=== PATIENT | male | born 1965 | race Caucasian/White ===

== ENCOUNTER 2021-12-10 12:07 | Emergency (ER) | payer OTHER ==
[2021-12-10 13:35] LABS: HEMOGLOBIN 15.7 gm/dl (14.0-17.5); RED BLOOD COUNT 4.73 M/UL (4.20-5.50); WHITE BLOOD COUNT 7.4 K/UL (4.5-11.0)
[2021-12-10 13:53] LABS: BUN/CREATININE RATIO 16 (0-10)
[2021-12-10] MEDS ORDERED: LISINOPRIL10 MG PO (14:48)
[2021-12-10] MEDS ORDERED: METFORMIN HCL500 MG PO (14:48)
== END 2021-12-10 15:05 | disposition home or self-care (01) ==
LOC: ER1 12:07
PROVIDERS: Physician Assistant
DX: I10 Essential (primary) hypertension (principal); E10.9 Type 1 diabetes mellitus without complications; E78.5 Hyperlipidemia, unspecified
CPT/HCPCS: 71045; 80053; 82550; 82553; 84484; 85025; 93005; 99284